=== PATIENT | male | born 1990 | race Caucasian/White ===

== ENCOUNTER 2021-04-07 16:34 | Emergency (ER) | payer OTHER ==
[~2021-04-07] VITALS: Ht 170.2 cm; Wt 100.0 kg
[2021-04-07] MEDS ORDERED: GELATIN SPONGE SIZE 12-7MM SPONGE. ONE ×2 (16:57→16:59)
[2021-04-07] MEDS ORDERED: GELATIN SPONGE SIZE 100. TP ONE (17:00)
--- NOTE | 2021-04-07 17:00 | PHYS DOC ---
General Adult EDM: Chief Complaint: FOOT INJURY PAIN HPI: HPI: Patient is a 30-year-old male who presents to the emergency department for bleeding to his right foot site where he had 3 warts removed this morning at 8 AM at a surgery center. Patient reports that it started bleeding about 20 minutes ago. He denies any injury to the foot or decreased sensation. He is able to bear weight. Patient reports that he did not call the surgery center. He denies any blood thinner use. (ARUN COLE APRN) Review of Systems: Review of Systems: Musculoskeletal: See HPI Integument: See HPI Neurologic: See HPI (ARUN COLE APRN) Physical Exam: PE: Constitutional: Well developed, well nourished, no acute distress, non-toxic appearance. [] HENT: Normocephalic, atraumatic, bilateral external ears normal, oropharynx moist, no oral exudates, nose normal. [] Eyes: PERRL, EOMI, conjunctiva normal, no discharge. [] Neck: Normal range of motion, no stridor Cardiovascular: Peripheral perfusion Lungs & Thorax: Normal work of breathing, no tachypnea Abdomen: Soft and flat Skin: Warm, dry, no erythema, no rash. [] Right plantar aspect of foot: 3 oval- shaped wounds from wart removal it appears that 2 wounds are actively bleeding, range of motion intact, neuro intact, no sutures noted Back: Normal range of motion Extremities: No tenderness, no cyanosis, no clubbing, ROM intact, no edema. [] Neurologic: Alert and oriented X 3, normal motor function, normal sensory function, no focal deficits noted. [] Psychologic: Affect normal, judgement normal, mood normal. [] (ARUN COLE APRN) EKG: EKG: [] (ARUN COLE APRN) Radiology/Procedures: Radiology/Procedures: [] (ARUN COLE APRN) Heart Score: C/O Chest Pain: N/A Risk Factors: Risk Factors: DM, Current or recent (<one month) smoker, HTN, HLP, family history of CAD, obesity. Risk Scores: Score 0 - 3: 2.5% MACE over next 6 weeks - Discharge Home Score 4 - 6: 20.3% MACE over next 6 weeks - Admit for Clinical Observation Score 7 - 10: 72.7% MACE over next 6 weeks - Early Invasive Strategies (ARUN COLE APRN) C/O Chest Pain: No (ZACK DELAROSA DO) Course & Med Decision Making: Course & Med Decision Making Pertinent Labs and Imaging studies reviewed. (See chart for details) [] Patient resents to the emergency department for bleeding at the site where he had 3 warts removed on the bottom of his right foot. It appears that currently 2 wounds are actively bleeding. Gelfoam placed as well as a pressure dressing to help with bleeding. Following placement of Gelfoam with a dressing, vincent bernal's bleeding has stopped, he was given crutches to avoid bearing weight onto the foot and causing rebleeding. Patient advised to keep the dressing in place and follow-up with his surgery center tomorrow morning. I discussed with patient all findings and diagnostic testing as well as the need to follow-up with PCP for further evaluation and treatment or return to the ER if any new or worsening symptoms. Strict return precautions were also discussed at length. Patient voiced understanding and agreement with the plan. Patient is hemodynamically stable at the time of disposition. (ARUN COLE APRN) Course & Med Decision Making I personally saw and evaluated patient along with involvement of the PA/[employer]. I agree with the reported plan of care and ultimate disposition. I performed all aspects of MDM as documented including evaluation of patient/s condition(s), review and analysis of available data, and determination of risk of patient management decisions. Electronically signed, Zack Delarosa DO (ZACK DELAROSA DO) Mario Disclaimer: Mario Disclaimer: This electronic medical record was generated, in whole or in part, using a voice recognition dictation system. (ARUN COLE APRN) Departure Departure: Impression: Primary Impression: Bleeding from wound Disposition: HOME / SELF CARE / HOMELESS Condition: GOOD Referrals: NON,STAFF (PCP) Patient Instructions: Postsurgical Bleeding Additional Instructions: You were seen in the emergency department today for bleeding to the wound site w here you had warts removed. A dressing was placed to your foot. Please do not change this dressing until tomorrow morning. Tomorrow morning you need to contact the surgery center and follow-up with them as soon as you can. Avoid bearing weight on the foot as it may cause rebleeding therefore use the crutches that were given for you today. Monitor for any signs of infection which include redness, warmth, swelling, drainage. If you develop any of the signs of infection, rebleeding, lightheadedness, high fevers refractory to treatment or any new or worsening concerns please return to the emergency department. ARUN COLE APRN Apr 07, 2021 17:00 ZACK DELAROSA DO Apr 08, 2021 06:19
[2021-04-07 17:31] VITALS: BP 141/87
[2021-04-07] MEDS ORDERED: GELATIN SPONGE SIZE 12-7MM SPONGE. TP ONE (17:45)
== END 2021-04-07 18:36 | disposition home or self-care (01) ==
LOC: ER 16:34
DX: L76.22 Postprocedural hemorrhage of skin and subcutaneous tissue following other procedure (principal)
CPT/HCPCS: 99283

== ENCOUNTER 2021-04-07 19:12 | Emergency (ER) | payer OTHER ==
[~2021-04-07] VITALS: Ht 170.2 cm; Wt 100.0 kg
[2021-04-07 19:29] VITALS: BP 127/81
[2021-04-07] MEDS ORDERED: TRANEXAMIC ACID 1,000 MG/10 ML VIAL. TOP ONE (19:30)
--- NOTE | 2021-04-07 19:34 | PHYS DOC ---
Past History Additional Past Medical Histor: seasonal allergies Past Surgical History: Other Additional Past Surgical Histo: wart removal, nasal surgery Alcohol Use: None Adult General HPI HPI Patient is a 30-year-old male, otherwise healthy with no medical problems on no anticoagulation who presents a second time to the emergency department today for postop bleeding. States he had some warts removed from the bottom of his foot earlier today and it keeps bleeding. States he came into the emergency department about an hour ago and had it bandaged but it still keeps bleeding. States it takes about an hour to soak through. Denies any headache, lightheadedness, chest pain, shortness of breath. Review of Systems Review of Systems Review of systems otherwise unremarkable except noted in HPI Allergies Allergies Allergies Coded Allergies Type Severity Reaction Last Updated Verified No Known Drug Allergies 04/07/21 No Physical Exam Physical Exam Constitutional: Well developed, well nourished, no acute distress, non-toxic appearance. [] Eyes: conjunctiva normal, no discharge. [] Cardiovascular:Heart rate regular rhythm, no murmur [] Lungs & Thorax: No respiratory distress Skin: Warm, dry, no erythema, no rash. [] Extremities: Patient has 2 lesions on the bottom of the left foot from wart removal. 1 lesion on the lateral aspect just medial to the fifth digit bleeding controlled, the second lesion just underneath the first and second digit has some slow bleeding of dark blood with some clots. Neurovascular exam intact. Neurologic: Alert and oriented X 3, normal motor function, normal sensory functi on, no focal deficits noted. [] Psychologic: Affect normal, judgement normal, mood normal. [] EKG EKG [] Radiology/Procedures Radiology/Procedures [] Heart Score C/O Chest Pain: No Risk Factors: Risk Factors: DM, Current or recent (<one month) smoker, HTN, HLP, family history of CAD, obesity. Risk Scores: Risk Factors: DM, Current or recent (<one month) smoker, HTN, HLP, family history of CAD, obesity. Course & Med Decision Making Course & Med Decision Making Patient is a 30-year-old male who presents for wound check Vital signs not concerning. Physical exam noted above. Pressure bandaged with TX and Telfa. Gave wound care materials for home. Discussed wound management and given education. Advised to stay off the foot, do not ambulate unless absolutely necessary keep the leg elevated. Advised to call a surgeon first thing in the morning to update on ED visit and set up a follow-up as indicated by surgeon. Gave return precautions to the ED. Family grateful, verbalized understanding and agrees with plan of discharge. [] Dragon Disclaimer Dragon Disclaimer This electronic medical record was generated, in whole or in part, using a voice recognition dictation system. Departure Departure: Impression: Primary Impression: Visit for wound check Disposition: HOME / SELF CARE / HOMELESS Condition: GOOD Referrals: PCP,UNKNOWN (PCP) RICKY HAWK MD Patient Instructions: Wound Care, [id number] Additional Instructions: Thank you for coming into the emergency department tonight and allowing us to take care of you. Please read the attached information carefully to go over things we discussed. Please keep this bandage on that was placed in the ED for 24 hours, try not to walk or put pressure on this at all as much as possible and keep your leg elevated as high as you can while you are at home. You can remove the dressing in 24 hours clean very gently with warm soap and water and reapply bandages that were given to you as demonstrated and directed. Please call your surgeon in the morning to update on your ED visit and discuss need for follow-up. In come back to the ED with new or concerning symptoms as we discussed. STEPHEN JACK MD Apr 07, 2021 19:34
== END 2021-04-07 19:51 | disposition home or self-care (01) ==
LOC: ER 19:12
DX: Z48.01 Encounter for change or removal of surgical wound dressing (principal); L76.22 Postprocedural hemorrhage of skin and subcutaneous tissue following other procedure
CPT/HCPCS: 99282